=== PATIENT | male | born 1935 | race Caucasian/White ===

== ENCOUNTER 2019-11-07 13:47 | Emergency (ER) | payer MEDICARE ==
[~2019-11-07] VITALS: Ht 185.4 cm; Wt 91.4 kg
[2019-11-07 14:11] LABS: CLARITY,URINE CLOUDY (Clear); COLOR,URINE YELLOW (Yellow); GLUCOSE, URINE NEGATIVE (Neg); KETONES,URINE NEGATIVE (Neg); LEUKOCYTE ESTERASE ,URINE LARGE (Neg); NITRITES, URINE NEGATIVE (Neg); OCCULT BLOOD,URINE LARGE (Neg); PROTEIN,URINE 30 mg/dl (Neg); UROBILINOGEN,URINE 0.2 E.U/dL (0.2-1.0)
[2019-11-07 14:13] LABS: UA COLLECTION TYPE CLN CATCH MIDSTREAM
[2019-11-07 14:17] LABS: BACTERIA,URINE 2+ /HPF (Neg); MUCUS STRANDS NONE SEEN /LPF (Neg); SQUAMOUS EPITHELIAL CELL,UR NONE SEEN /LPF (FEW); WBC CLUMPS,URINE MANY /HPF (NEGATIVE); WBC,URINE TNTC /HPF (0-4)
[2019-11-07 14:36] VITALS: BP_DIAS 78
[2019-11-07] MEDS ORDERED: phenazopyridine 100mg tablet PO ONE (15:00)
[2019-11-07] MEDS ORDERED: CefTRIAXone 1000mg IM Kit (w/lidocaine diluent) IM ONE (15:00)
[2019-11-07] MEDS ORDERED: NITR100C6 PO (15:06)
[2019-11-07] MEDS ORDERED: PHEN-824 PO (15:06)
[2019-11-07] MEDS ORDERED: nitrofuran/nitrofuran macrocrysal 100 MG capsule PO ONE (15:10)
[2019-11-07 15:20] VITALS: BP_SYST 125
== END 2019-11-07 15:23 | disposition home or self-care (01) ==
LOC: ER 13:47
DX: N39.0 Urinary tract infection, site not specified (principal); Z85.46 Personal history of malignant neoplasm of prostate; Z88.0 Allergy status to penicillin
CPT/HCPCS: 81001; 87077; 87088; 87186; 96372; 99284; J0696

== ENCOUNTER 2019-11-22 09:59 | Emergency (ER) | payer MEDICARE ==
[~2019-11-22] VITALS: Ht 185.4 cm; Wt 90.5 kg
[~2019-11-22 09:59] MED LIST: NITR100C6 PO; PHEN-824 PO
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
[2019-11-22 10:25] LABS: CLARITY,URINE CLOUDY (Clear); COLOR,URINE YELLOW (Yellow); GLUCOSE, URINE NEGATIVE (Neg); KETONES,URINE NEGATIVE (Neg); LEUKOCYTE ESTERASE ,URINE LARGE (Neg); NITRITES, URINE POSITIVE (Neg); OCCULT BLOOD,URINE LARGE (Neg); PROTEIN,URINE 100 mg/dl (Neg); UROBILINOGEN,URINE 0.2 E.U/dL (0.2-1.0)
[2019-11-22 10:27] LABS: UA COLLECTION TYPE CLN CATCH MIDSTREAM
[2019-11-22 10:30] LABS: BACTERIA,URINE 4+ /HPF (Neg); MUCUS STRANDS NONE SEEN /LPF (Neg); RBC,URINE 20-50 /HPF (0-2); SQUAMOUS EPITHELIAL CELL,UR NONE SEEN /LPF (FEW); TRANSITIONAL EPI CELLS,URINE FEW /HPF; WBC CLUMPS,URINE MANY /HPF (NEGATIVE); WBC,URINE TNTC /HPF (0-4)
[2019-11-22] MEDS ORDERED: LEVO500T2 PO (11:44)
[2019-11-22] MEDS ORDERED: levoFLOXACIN-Levaquin 500mg/D5 100 ML IV ONE (11:45)
[2019-11-22 12:44] VITALS: BP 121/63
== END 2019-11-22 13:00 | disposition home or self-care (01) ==
LOC: ER 09:59
DX: N39.0 Urinary tract infection, site not specified (principal); R39.0 Extravasation of urine; R39.15 Urgency of urination; R35.0 Frequency of micturition; I10 Essential (primary) hypertension; Z85.038 Personal history of other malignant neoplasm of large intestine; Z98.890 Other specified postprocedural states; Z90.89 Acquired absence of other organs; Z88.0 Allergy status to penicillin; Z79.2 Long term (current) use of antibiotics; Z79.899 Other long term (current) drug therapy
CPT/HCPCS: 81001; 87077; 87088; 87186; 96365; 99284; J1956

== ENCOUNTER 2021-01-10 15:15 | Emergency (ER) | payer MEDICARE ==
[~2021-01-10] VITALS: Ht 185.4 cm; Wt 90.9 kg
[2021-01-10 15:40] VITALS: BP 180/84
[2021-01-10] MEDS ORDERED: CEPH250T PO (17:31)
== END 2021-01-10 17:45 | disposition home or self-care (01) ==
LOC: ER 15:15
DX: L08.9 Local infection of the skin and subcutaneous tissue, unspecified (principal); I10 Essential (primary) hypertension; Z85.038 Personal history of other malignant neoplasm of large intestine; Z90.49 Acquired absence of other specified parts of digestive tract; Z88.0 Allergy status to penicillin; Z79.2 Long term (current) use of antibiotics; Z79.899 Other long term (current) drug therapy
CPT/HCPCS: 99283

== ENCOUNTER 2021-01-19 14:32 | Emergency (ER) | payer MEDICARE ==
[~2021-01-19] VITALS: Ht 185.4 cm; Wt 92.5 kg
[2021-01-19 14:53] VITALS: BP 166/89
== END 2021-01-19 16:00 | disposition home or self-care (01) ==
LOC: ER 14:33
DX: S61.200D Unspecified open wound of right index finger without damage to nail, subsequent encounter (principal); L92.9 Granulomatous disorder of the skin and subcutaneous tissue, unspecified; I10 Essential (primary) hypertension; Z85.038 Personal history of other malignant neoplasm of large intestine; Z90.89 Acquired absence of other organs; Z88.0 Allergy status to penicillin; Z79.899 Other long term (current) drug therapy; X58.XXXD Exposure to other specified factors, subsequent encounter
CPT/HCPCS: 99281

== ENCOUNTER 2021-10-06 17:35 | Emergency (ER) | payer MEDICARE ==
[~2021-10-06] VITALS: Ht 185.4 cm; Wt 92.7 kg
[2021-10-06 18:48] VITALS: BP 190/81
[2021-10-06 19:40] LABS: BASOPHILS # (AUTO) 0.1 X10'3 (0-0.2); BASOPHILS % (AUTO) 0.6 % (0-1); EOSINOPHILS # (AUTO) 0.1 X10'3 (0-0.9); EOSINOPHILS % (AUTO) 1.3 % (0-6); HEMATOCRIT 48.1 % (42.0-52.0); HEMOGLOBIN 16.8 g/dl (14.0-17.9); LYMPHOCYTES # (AUTO) 2.4 X10'3 (1.1-4.8); LYMPHOCYTES % (AUTO) 23.2 % (21-51); MEAN CORPUSCULAR HEMOGLOBIN 31.3 PG (27.0-31.0); MEAN CORPUSCULAR VOLUME 89.3 FL (78-98); MEAN PLATELET VOLUME 8.7 FL (7.4-10.4); MONOCYTES # (AUTO) 0.9 X10'3 (0-0.9); MONOCYTES % (AUTO) 8.6 % (2-12); NEUTROPHILS % (AUTO) 66.3 % (42-75); PLATELET COUNT 249 X10'3 (140-440); RED BLOOD COUNT 5.38 X10'6 (4.70-6.10); RED CELL DISTRIBUTION WIDTH 13.8 % (11.5-14.5); WHITE BLOOD COUNT 10.5 X10'3 (4.5-11.0)
[2021-10-06 19:49] LABS: ALANINE AMINOTRANSFERASE 38 U/L (12-78); ALBUMIN 4.1 G/DL (3.4-5.0); ALBUMIN/GLOBULIN RATIO 1.1 (1.1-1.5); ALKALINE PHOSPHATASE 91 IU/L (46-116); ANION GAP 9 (8-16); ASPARTATE AMINO TRANSFERASE 21 U/L (10-37); BILIRUBIN,TOTAL 0.7 MG/DL (0.1-1.0); BLOOD UREA NITROGEN 9 MG/DL (7-18); BUN/CREATININE RATIO 13.6 (5.4-32.0); CALCIUM 9.9 MG/DL (8.5-10.1); CHLORIDE 101 MMOL/L (99-107); CREATININE 0.66 MG/DL (0.60-1.10); GLUCOSE 113 MG/DL (70-104); POTASSIUM 3.8 MMOL/L (3.5-5.1); SODIUM 137 MMOL/L (135-145); TOTAL CARBON DIOXIDE 26.9 MMOL/L (24-32); TOTAL PROTEIN 7.8 G/DL (6.4-8.2); eGFR > 90 ML/MIN
[2021-10-06] MEDS ORDERED: PROCHC RC (23:16)
== END 2021-10-06 23:30 | disposition home or self-care (01) ==
LOC: ER 17:35
DX: K64.4 Residual hemorrhoidal skin tags (principal); I10 Essential (primary) hypertension; Z85.038 Personal history of other malignant neoplasm of large intestine; Z90.49 Acquired absence of other specified parts of digestive tract; Z88.0 Allergy status to penicillin; Z79.899 Other long term (current) drug therapy
CPT/HCPCS: 36415; 80053; 85025; 99284

== ENCOUNTER 2022-08-29 21:12 | Emergency (ER) | payer MEDICARE ==
[~2022-08-29] VITALS: Ht 185.4 cm; Wt 94.1 kg
[~2022-08-29 21:12] MED LIST changes: +PROCHC RC
[2022-08-29 21:25] VITALS: BP 142/77
== END 2022-08-30 01:44 | disposition left against medical advice (07) ==
LOC: ER 21:13
DX: R31.9 Hematuria, unspecified (principal); Z53.21 Procedure and treatment not carried out due to patient leaving prior to being seen by health care provider